=== PATIENT | female | born 1990 | race Caucasian/White ===

== ENCOUNTER → 2019-06-27 | Outpatient (CLI) | payer OTHER ==
--- NOTE | 2019-06-27 15:56 | RADIOLOGY IMAGING REPORT ---
FACILITY: [facility] PATIENT NAME: Lissa Burks : 1990 MR: [id number] V: [id number] EXAM DATE: ORDERING PHYSICIAN: CAMACHO KRUSE TECHNOLOGIST: Location: [facility] [place] Patient: Lissa Burks : 1990 Visit/Account:[id number] Date of Sevice: 06/27/2019 CT L-SPINE DISCOGRAM INDICATION: Discogram. COMPARISON: None available. TECHNIQUE: Limited CT of the lumbosacral spine with L4-L5 and L5-S1 discogram. The superior extent o f the CT is in the middle of the L4 vertebral body and the inferior extent of this CT is in the infer ior S3 vertebral body. FINDINGS/IMPRESSION: Contrast material in the L4-L5 and L5-S1 discs. See surgical note for additional details. Report Dictated By: Sen Gerardo MD at 06/27/2019 3:46 PM Report E-Signed By: Sen Gerardo MD at 06/27/2019 3:48 PM WSN:[id number]
== END ==
LOC: CT 14:51
PROVIDERS: ATTEND Physical Medicine & Rehabilitation Pain Medicine
DX: M51.36 Other intervertebral disc degeneration, lumbar region (principal)
CPT/HCPCS: 72295